=== PATIENT | female | born 1940 | race Caucasian/White ===

== ENCOUNTER 2016-11-29 14:27 | Inpatient (IN) | payer OTHER ==
[~2016-11-29] VITALS: Ht 152.4 cm; Wt 91.2 kg
[~2016-11-29 14:27] MED LIST: ANSAID100 MG PO; CITALOPRAM HBR40 MG PO; FUROSEMIDE40 MG PO; IRON325 MG PO; KLOR-CON M2020 MEQ PO; LISINOPRIL40 MG PO; MELOXICAM15 MG; MULTIVITAMIN1 EAC2 PO; Magnesium PO; Norvasc PO; OMEPRAZOLE20 MG; PRAVACHOL40 MG PO; PRAVASTATIN SOD40 MG; PRILOSEC20 MG PO; Rocaltrol PO; TRAMADOL HCL50 MG PO; Tylenol Extra Streng PO; Ultram PO; [UNRECOGNIZED DRUG - OTHER] PO
[2016-11-29 15:56] LABS: HEMATOCRIT 30.3 % (36.0-46.0); MCH 30.6 PG (29.0-34.0); MCV 85.1 FL (83-99); MEAN PLAT.VOLUME 11.8 uM^3 (9.5-12.4); PLATELET COUNT 197 K/uL (156-360); RBC DIS.WIDTH-CV 13.3 % (11.8-14.6); RBC DIS.WIDTH-SD 40.2 % (39-53); RED BLOOD COUNT 3.56 M/uL (3.80-5.20); WHITE BLOOD COUNT 7.1 K/uL (4.1-10.2)
[2016-11-29 16:44] LABS: CHLORIDE 89 mEq/L (99-109); POTASSIUM 3.7 mEq/L (3.7-5.4); SODIUM 121 mEq/L (136-147)
[2016-11-29 16:46] LABS: GLUCOSE 115 mg/dL (70-99)
[2016-11-29 16:47] LABS: ANION GAP 22 MEQ/L (2-14)
[2016-11-29 16:48] LABS: TOTAL BILIRUBIN 0.4 mg/dL (0.0-1.0)
[2016-11-29 16:50] LABS: ALKALINE PHOSPHATASE 55 IU/L (3-129); GFR ESTIMATE (CALCULATED) 6 mL/min/
[2016-11-29 16:51] LABS: UREA NITROGEN (BUN) 82 mg/dL (9-23)
[2016-11-29 16:53] LABS: LIPASE 185 U/L (1.0-51.0)
[2016-11-29 16:56] LABS: TROP-I INTERPRETATION NEGATIVE; TROPONIN-I < 0.01 ng/mL (0.0-0.30)
[2016-11-29] MEDS ORDERED: TYLENOL REGULA325 MG PO (17:59)
[2016-11-29] MEDS ORDERED: HYDROCHLOROTH12.5 M3 PO (18:00)
[2016-11-29] MEDS ORDERED: NORVASC5 MG PO (18:00)
[2016-11-29] MEDS ORDERED: MAGNESIUM250 MG PO (18:01)
[2016-11-29] MEDS ORDERED: ZESTRIL40 MG PO (18:01)
[2016-11-29] MEDS ORDERED: COREG6.25 M1 PO (18:01)
[2016-11-29] MEDS ORDERED: IMODIUM MS REL1 EACH PO (18:03)
[2016-11-29 20:01] LABS: INTERNAL CONTROL VALID? YES
[2016-11-29 20:26] LABS: C DIFF TOXIN NEGATIVE (NEGATIVE)
[2016-11-29 20:27] LABS: PROBE CHECK PASS; SPECIMEN PROCESSING CONTROL PASS
[2016-11-29 21:21] LABS: CHLORIDE 93 mEq/L (99-109); POTASSIUM 3.6 mEq/L (3.7-5.4); SODIUM 122 mEq/L (136-147)
[2016-11-29 21:22] LABS: MAGNESIUM 1.4 mg/dL (1.3-2.7)
[2016-11-29 21:23] LABS: GLUCOSE 110 mg/dL (70-99)
[2016-11-29 21:25] LABS: ANION GAP 17 MEQ/L (2-14)
[2016-11-29 21:27] LABS: GFR ESTIMATE (CALCULATED) 7 mL/min/
[2016-11-29 21:28] LABS: UREA NITROGEN (BUN) 79 mg/dL (9-23)
[2016-11-29 21:45] VITALS: BP 119/47
[2016-11-29 22:06] VITALS: BP 119/47
[2016-11-29 22:43] LABS: CREATINE KINASE 125 IU/L (1-294)
[2016-11-29 23:29] LABS: METH RESISTANT S AUREUS PCR NEGATIVE (NEGATIVE)
[2016-11-29 23:30] LABS: PROBE CHECK PASS; SPECIMEN PROCESSING CONTROL PASS
[2016-11-30] VITALS (7 sets, daily range): BP systolic 92–113; BP diastolic 28–53
[2016-11-30 01:23] LABS: ADD MIUA? NO; BILIRUBIN MODERATE; BLOOD NEGATIVE; COLOR YELLOW ((YELLOW)); GLUCOSE (STRIP) NEGATIVE; KETONES NEGATIVE; LEUKOCYTES NEGATIVE; NITRITE NEGATIVE; PROTEIN (STRIP) TRACE; SPECIFIC GRAVITY 1.028 (1.000-1.030); UROBILINOGEN 0.2 MG/DL (0.2-1.0)
[2016-11-30 03:48] LABS: UR CREATININE CONCENTRATION 411.5 MG/DL
[2016-11-30 06:17] LABS: HEMATOCRIT 26.2 % (36.0-46.0); MCH 30.6 PG (29.0-34.0); MCHC 35.5 G/DL (30.0-36.0); MCV 86.2 FL (83-99); MEAN PLAT.VOLUME 11.9 uM^3 (9.5-12.4); PLATELET COUNT 210 K/uL (156-360); RBC DIS.WIDTH-CV 13.8 % (11.8-14.6); RBC DIS.WIDTH-SD 43.8 % (39-53); RED BLOOD COUNT 3.04 M/uL (3.80-5.20); WHITE BLOOD COUNT 5.8 K/uL (4.1-10.2)
[2016-11-30 07:01] LABS: ALKALINE PHOSPHATASE 42 IU/L (3-129); ANION GAP 18 MEQ/L (2-14); CHLORIDE 96 MEQ/L (99-109); GFR ESTIMATE (CALCULATED) 8 mL/min/; LIPASE 152 U/L (1.0-51.0); MAGNESIUM 1.4 mg/dl (1.3-2.7); POTASSIUM 3.7 MEQ/L (3.7-5.4); SAMPLE HEMOLYSIS CHECK 0; SAMPLE ICTERIC CHECK 0; SAMPLE LIPEMIA CHECK 0; SODIUM 125 MEQ/L (136-147); TOTAL BILIRUBIN 0.4 MG/DL (0.0-1.0); UREA NITROGEN (BUN) 79 mg/dL (9-23)
[2016-11-30 07:03] LABS: ICTOTEST NEGATIVE
[2016-11-30 07:03] LABS: GLUCOSE 82 mg/dL (70-99)
[2016-11-30 10:29] LABS: URIC ACID 13.1 mg/dL (3.1-9.2)
[2016-11-30 10:49] LABS: CREATINE KINASE 286 IU/L (1-294)
[2016-12-01] VITALS (9 sets, daily range): BP systolic 80–129; BP diastolic 28–59
[2016-12-01 06:27] LABS: HEMATOCRIT 25.6 % (36.0-46.0); MCH 30.7 PG (29.0-34.0); MCHC 35.9 G/DL (30.0-36.0); MCV 85.3 FL (83-99); MEAN PLAT.VOLUME 12.1 uM^3 (9.5-12.4); PLATELET COUNT 229 K/uL (156-360); RBC DIS.WIDTH-CV 13.3 % (11.8-14.6); RBC DIS.WIDTH-SD 41.3 % (39-53); WHITE BLOOD COUNT 7.5 K/uL (4.1-10.2)
[2016-12-01 07:02] LABS: ALKALINE PHOSPHATASE 47 IU/L (3-129); ANION GAP 13 MEQ/L (2-14); CHLORIDE 95 MEQ/L (99-109); GLUCOSE 101 mg/dL (70-99); IRON 104 MCG/DL (35-150); MAGNESIUM 1.5 mg/dl (1.3-2.7); POTASSIUM 3.5 MEQ/L (3.7-5.4); SAMPLE HEMOLYSIS CHECK 0; SAMPLE ICTERIC CHECK 0; SAMPLE LIPEMIA CHECK 0; SODIUM 127 MEQ/L (136-147); UREA NITROGEN (BUN) 75 mg/dL (9-23)
[2016-12-01 07:04] LABS: GFR ESTIMATE (CALCULATED) 15 mL/min/; TOTAL BILIRUBIN 0.6 MG/DL (0.0-1.0)
[2016-12-02] VITALS (9 sets, daily range): BP systolic 109–182; BP diastolic 31–75
[2016-12-02 05:19] LABS: HEMATOCRIT 22.5 % (36.0-46.0); MCV 86.2 FL (83-99); MEAN PLAT.VOLUME 11.5 uM^3 (9.5-12.4); PLATELET COUNT 228 K/uL (156-360); RBC DIS.WIDTH-CV 13.4 % (11.8-14.6); RBC DIS.WIDTH-SD 42.8 % (39-53); RED BLOOD COUNT 2.61 M/uL (3.80-5.20); WHITE BLOOD COUNT 8.6 K/uL (4.1-10.2)
[2016-12-02 06:39] LABS: ALKALINE PHOSPHATASE 42 IU/L (3-129); ANION GAP 9 MEQ/L (2-14); CHLORIDE 103 MEQ/L (99-109); GLUCOSE 91 mg/dL (70-99); MAGNESIUM 1.7 mg/dl (1.3-2.7); SAMPLE HEMOLYSIS CHECK 0; SAMPLE ICTERIC CHECK 0; SAMPLE LIPEMIA CHECK 0; SODIUM 133 MEQ/L (136-147); UREA NITROGEN (BUN) 60 mg/dL (9-23)
[2016-12-02 06:40] LABS: GFR ESTIMATE (CALCULATED) 27 mL/min/; POTASSIUM 4.4 MEQ/L (3.7-5.4); TOTAL BILIRUBIN 0.4 MG/DL (0.0-1.0)
[2016-12-02 07:36] LABS: INTACT PARATHYROID HORMONE 120 pg/mL (10-69)
[2016-12-03 03:32] VITALS: BP 146/61
[2016-12-03 07:03] LABS: HEMATOCRIT 24.6 % (36.0-46.0); MCV 88.8 FL (83-99); MEAN PLAT.VOLUME 11.7 uM^3 (9.5-12.4); RBC DIS.WIDTH-CV 14.1 % (11.8-14.6); RBC DIS.WIDTH-SD 45.6 % (39-53); RED BLOOD COUNT 2.77 M/uL (3.80-5.20)
[2016-12-03 07:14] LABS: ALKALINE PHOSPHATASE 47 IU/L (3-129); ANION GAP 9 MEQ/L (2-14); CHLORIDE 104 MEQ/L (99-109); GFR ESTIMATE (CALCULATED) 36 mL/min/; GLUCOSE 90 mg/dL (70-99); MAGNESIUM 1.7 mg/dl (1.3-2.7); PLATELET COUNT 306 K/uL (156-360); POTASSIUM 4.7 MEQ/L (3.7-5.4); SAMPLE HEMOLYSIS CHECK 0; SAMPLE ICTERIC CHECK 0; SAMPLE LIPEMIA CHECK 0; SODIUM 135 MEQ/L (136-147); TOTAL BILIRUBIN 0.4 MG/DL (0.0-1.0); UREA NITROGEN (BUN) 42 mg/dL (9-23); WHITE BLOOD COUNT 12.1 K/uL (4.1-10.2)
[2016-12-03 07:20] VITALS: BP 187/77
[2016-12-03 09:15] VITALS: BP 146/74
[2016-12-03 11:35] VITALS: BP 150/67
== END 2016-12-03 14:14 | disposition home or self-care (01) | DRG 683 ==
LOC: EME 14:27 → 4WEST 20:11 → EDOF 20:11 → 4WEST 21:44 → UNDODEPER 21:46 → 4WEST 12-02 13:31 → 2EAST 12-02 15:38
PROVIDERS: Internal Medicine; Physician Assistant Medical
DX: N17.9 Acute kidney failure, unspecified (principal); E87.2 Acidosis; A04.5 Campylobacter enteritis; E87.1 Hypo-osmolality and hyponatremia; I12.9 Hypertensive chronic kidney disease with stage 1 through stage 4 chronic kidney disease, or unspecified chronic kidney disease; N18.3 Chronic kidney disease, stage 3 (moderate); R19.7 Diarrhea, unspecified; I95.9 Hypotension, unspecified; E83.51 Hypocalcemia; D63.1 Anemia in chronic kidney disease; E86.0 Dehydration; Z88.0 Allergy status to penicillin; Z88.8 Allergy status to other drugs, medicaments and biological substances; E78.5 Hyperlipidemia, unspecified; E66.9 Obesity, unspecified; E55.9 Vitamin D deficiency, unspecified; K21.9 Gastro-esophageal reflux disease without esophagitis; Z68.39 Body mass index [BMI] 39.0-39.9, adult
CPT/HCPCS: 71020; 71250; 74176; 80048 91; 80053; 81003; 82330; 82436; 82550; 82550 91; 82570; 83540; 83605; 83630; 83690; 83735; 83930; 83935; 83970; 84100; 84133; 84156; 84300; 84466; 84484; 84540; 84550; 85027; 87045; 87077; 87177; 87329; 87493; 87506; 87641; 93005; 99281; 99285; J0456; J0881; J1170; J1644; J2405; J3475; J3480; J7030; J7070; J7120

== ENCOUNTER 2017-06-17 20:15 | Observation (INO) | payer OTHER ==
[~2017-06-17] VITALS: Ht 149.9 cm; Wt 81.1 kg
[~2017-06-17 20:15] MED LIST changes: +COREG6.25 M1 PO; +HYDROCHLOROTH12.5 M3 PO; +IMODIUM MS REL1 EACH PO; +MAGNESIUM250 MG PO; +NORVASC5 MG PO; +TYLENOL REGULA325 MG PO; +ZESTRIL40 MG PO
[2017-06-17 22:00] LABS: HEMATOCRIT 33.5 % (36.0-46.0); MCH 31.4 PG (29.0-34.0); MCV 92.3 FL (83-99); MEAN PLAT.VOLUME 11.5 uM^3 (9.5-12.4); PLATELET COUNT 232 K/uL (156-360); RBC DIS.WIDTH-CV 13.7 % (11.8-14.6); RBC DIS.WIDTH-SD 47.1 % (39-53); RED BLOOD COUNT 3.63 M/uL (3.80-5.20); WHITE BLOOD COUNT 7.3 K/uL (4.1-10.2)
[2017-06-17 22:20] LABS: CHLORIDE 103 mEq/L (99-109); POTASSIUM 5.2 mEq/L (3.7-5.4); SODIUM 135 mEq/L (136-147)
[2017-06-17 22:22] LABS: GLUCOSE 114 mg/dL (70-99)
[2017-06-17 22:23] LABS: ANION GAP 14 MEQ/L (2-14)
[2017-06-17 22:24] LABS: TOTAL BILIRUBIN 0.2 mg/dL (0.0-1.0)
[2017-06-17 22:26] LABS: ALKALINE PHOSPHATASE 47 IU/L (3-129); GFR ESTIMATE (CALCULATED) 24 mL/min/
[2017-06-17 22:27] LABS: UREA NITROGEN (BUN) 48 mg/dL (9-23)
[2017-06-17 22:30] LABS: TROP-I INTERPRETATION NEGATIVE; TROPONIN-I < 0.01 ng/mL (0.0-0.30)
[2017-06-17 22:30] LABS: ADD MIUA? NO; BILIRUBIN NEGATIVE; BLOOD NEGATIVE; COLOR COLORLESS ((YELLOW)); GLUCOSE (STRIP) NEGATIVE; KETONES NEGATIVE; LEUKOCYTES NEGATIVE; NITRITE NEGATIVE; PROTEIN (STRIP) NEGATIVE; SPECIFIC GRAVITY 1.005 (1.000-1.030); UCUL ADDED? NO; UROBILINOGEN 0.2 MG/DL (0.2-1.0)
[2017-06-17] MEDS ORDERED: MAGNESIUM OXID500 MG PO (23:20)
[2017-06-17] MEDS ORDERED: ASPIRIN325 MG PO (23:21)
[2017-06-17] MEDS ORDERED: CRANBERRY TABL1 EACH PO (23:22)
[2017-06-17] MEDS ORDERED: FISH OIL 1,0001 EAC4 PO (23:22)
[2017-06-17] MEDS ORDERED: CO Q-10100 MG PO (23:22)
[2017-06-18 02:33] VITALS: BP 148/70
[2017-06-18 04:57] VITALS: BP 140/65
[2017-06-18 05:41] LABS: TROP-I INTERPRETATION NEGATIVE; TROPONIN-I 0.02 ng/mL (0.0-0.30)
[2017-06-18 08:15] VITALS: BP 184/79
[2017-06-18 09:33] LABS: ANION GAP 11 MEQ/L (2-14); CHLORIDE 103 MEQ/L (99-109); GFR ESTIMATE (CALCULATED) 27 mL/min/; GLUCOSE 111 mg/dL (70-99); POTASSIUM 4.2 MEQ/L (3.7-5.4); SAMPLE HEMOLYSIS CHECK 0; SAMPLE ICTERIC CHECK 0; SAMPLE LIPEMIA CHECK 0; SODIUM 137 MEQ/L (136-147); UREA NITROGEN (BUN) 48 mg/dL (9-23)
[2017-06-18 11:58] VITALS: BP 155/65
== END 2017-06-18 16:35 | disposition home or self-care (01) ==
LOC: EME 20:15 → EDOF 06-18 01:08 → 5WEST 06-18 01:59
PROVIDERS: Emergency Medicine; Hospitalist; Nurse Practitioner Family
DX: R00.1 Bradycardia, unspecified (principal); R07.9 Chest pain, unspecified; J20.9 Acute bronchitis, unspecified; J21.9 Acute bronchiolitis, unspecified; I95.9 Hypotension, unspecified; I12.9 Hypertensive chronic kidney disease with stage 1 through stage 4 chronic kidney disease, or unspecified chronic kidney disease; E11.22 Type 2 diabetes mellitus with diabetic chronic kidney disease; N18.2 Chronic kidney disease, stage 2 (mild); E78.5 Hyperlipidemia, unspecified; D63.1 Anemia in chronic kidney disease; M81.0 Age-related osteoporosis without current pathological fracture; E27.40 Unspecified adrenocortical insufficiency; F32.9 Major depressive disorder, single episode, unspecified; Z79.82 Long term (current) use of aspirin; T44.7X6A Underdosing of beta-adrenoreceptor antagonists, initial encounter; Z91.128 Patient's intentional underdosing of medication regimen for other reason; Z88.0 Allergy status to penicillin; Z91.09 Other allergy status, other than to drugs and biological substances
CPT/HCPCS: 71020; 71250; 80048; 80053; 81003; 83880; 84484; 85027; 86900; 86901; 93005; 93306; 94640; 99202; G0378; J1644; J1940

== ENCOUNTER 2017-07-04 11:18 | Emergency (ER) | payer OTHER ==
[~2017-07-04] VITALS: Ht 147.3 cm; Wt 88.6 kg
[~2017-07-04 11:18] MED LIST changes: +ASPIRIN325 MG PO; +CO Q-10100 MG PO; +CRANBERRY TABL1 EACH PO; +FISH OIL 1,0001 EAC4 PO; +MAGNESIUM OXID500 MG PO
[2017-07-04 13:02] LABS: BASOPHIL COUNT 0.1 K/uL (0-0.1); EOSINOPHIL (%) 0.7 % (0-5); EOSINOPHIL COUNT 0.1 K/uL (0-0.3); HEMATOCRIT 33.9 % (36.0-46.0); IMMATURE GRANULOCYTE (%) 0.6 % (0.0-0.7); INSTRUMENT ABS NEUTROPHIL CT 5.1 K/uL; LYMPHOCYTE COUNT 1.3 K/uL (1.0-2.8); MCH 31.4 PG (29.0-34.0); MCHC 33.6 G/DL (30.0-36.0); MCV 93.4 FL (83-99); MEAN PLAT.VOLUME 11.5 uM^3 (9.5-12.4); MONOCYTE (%) 5.5 % (3-12); MONOCYTE COUNT 0.4 K/uL (0-0.8); NEUTROPHIL (%) 74.3 % (45-76); NEUTROPHIL COUNT 5.1 K/uL (1.8-6.4); PLATELET COUNT 212 K/uL (156-360); RBC DIS.WIDTH-CV 14.2 % (11.8-14.6); RBC DIS.WIDTH-SD 48.9 % (39-53); RED BLOOD COUNT 3.63 M/uL (3.80-5.20); WHITE BLOOD COUNT 6.9 K/uL (4.1-10.2)
[2017-07-04 13:08] LABS: PROTHROMBIN TIME 10.8 SEC (10.2-12.9)
[2017-07-04 13:10] LABS: PTT 26.7 SEC (25-37)
[2017-07-04 13:13] LABS: CHLORIDE 108 mEq/L (99-109); POTASSIUM 5.3 mEq/L (3.7-5.4); SODIUM 137 mEq/L (136-147)
[2017-07-04 13:14] LABS: GLUCOSE 130 mg/dL (70-99)
[2017-07-04 13:16] LABS: ANION GAP 13 MEQ/L (2-14)
[2017-07-04 13:18] LABS: GFR ESTIMATE (CALCULATED) 18 mL/min/
[2017-07-04 13:19] LABS: UREA NITROGEN (BUN) 50 mg/dL (9-23)
[2017-07-04 13:24] LABS: TROP-I INTERPRETATION NEGATIVE; TROPONIN-I < 0.01 ng/mL (0.0-0.30)
[2017-07-04 16:35] LABS: TROP-I INTERPRETATION NEGATIVE; TROPONIN-I < 0.01 ng/mL (0.0-0.30)
[2017-07-04 17:04] VITALS: BP 192/60
== END 2017-07-04 17:33 | disposition home or self-care (01) ==
LOC: EME 11:18
PROVIDERS: Emergency Medicine
DX: J20.9 Acute bronchitis, unspecified (principal); E86.0 Dehydration; I10 Essential (primary) hypertension; Z79.82 Long term (current) use of aspirin; Z88.0 Allergy status to penicillin
CPT/HCPCS: 71010; 80048; 83880; 84484; 85025; 85610; 85730; 93005; 99281; 99285; J7040